=== PATIENT | female | born 1980 ===

== ENCOUNTER → 2022-03-12 | Outpatient (CLI) | payer SELFPAY | END | disposition home or self-care (01) | LOC: PREOP 05:31 | PROVIDERS: ATTEND Obstetrics & Gynecology | DX: Z01.818 Encounter for other preprocedural examination (principal) ==

== ENCOUNTER → 2022-06-18 | Outpatient (CLI) | payer SELFPAY | END | disposition home or self-care (01) | LOC: PREOP 05:28 | PROVIDERS: ATTEND Obstetrics & Gynecology | DX: Z01.818 Encounter for other preprocedural examination (principal); D25.9 Leiomyoma of uterus, unspecified ==

== ENCOUNTER 2022-06-25 08:21 | Day surgery (SDC) | payer OTHER ==
[~2022-06-25] VITALS: Ht 160 cm; Wt 68.1 kg
[2022-06-25] VITALS (11 sets, daily range): BP systolic 108–134; BP diastolic 67–86
[2022-06-25] MEDS ORDERED: LACTATED RINGERS 1,000 ML IV PRN (08:30)
[2022-06-25] MEDS ORDERED: metroNIDAZOLE 500MG/100ML IVPB 100 ML IV ONE (08:30)
[2022-06-25] MEDS ORDERED: ceFAZolin INJECTION 2,000 MG in NS (IVPB) 50 ML IV ONE (08:30)
[2022-06-25] MEDS: LACTATED RINGERS 1,000 ML IV PRN ×2 (09:00→11:15)
[2022-06-25 09:02] LABS: HEMATOCRIT 44 % (35-52); MEAN CORPUSCULAR HEMOGLOBIN 31 pg (25-34); MEAN CORPUSCULAR HGB CONC 35 g/dL (32-36); MEAN CORPUSCULAR VOLUME 90 fL (80-99); MEAN PLATELET VOLUME 9.7 fL (9.0-12.2); PLATELET COUNT 351 10^3/uL (130-400); WHITE BLOOD COUNT 6.8 10^3/uL (4.3-11.0)
--- NOTE | 2022-06-25 10:31 | Progress Note-Pre Operative ---
Pre-Operative Progress Note Date of Available H&P: Jun 25, 2022 Date H&P Reviewed: Jun 25, 2022 Time H&P Reviewed: 10:25 History & Physical: H&P Reviewed, Patient Examed, No changes noted Pre-Operative Diagnosis: AUB, Menorrhagia, Fibroid uterus CT VICENTE DO Jun 25, 2022 10:31
--- NOTE | 2022-06-25 10:35 | Discharge Inst-Women's Service ---
Discharge Inst-Women's Serv Depart Medication/Instructions New, Converted or Re-Newed RX: Transmitted to Pharmacy Problems Reviewed?: Yes Consults/Follow Up Additional Follow Up: Yes Activity Activity: Activity as Tolerated Driving Instructions: No Driving for 1 Week NO SMOKING: NO SMOKING Nothing Inside Vagina: No Douching, No [place], No Tampons Diet Discharge Diet: No Restrictions Symptoms to Report to : Bleeding Excessive, Pain Increased, Fever Over 101 Degrees F, Vaginal Bleeding Increase, Questions/Concerns For Any Problems or Questions: Contact Your Physician Skin/Wound Care Infection Signs and Symptoms: Increased Redness, Foul Odor of Wound, Increased Drainage, Skin Itchy or Has a Rash, Increased Swelling, Temperature Above 101 F Operative Area Clean and Dry: Keep Incision Clean/Dry Stitches/[place]/Dermabond: Dermabond, Care of Stitches Bathing Instructions: CT Rodrigues DO Jun 25, 2022 10:35
[2022-06-25] MEDS ORDERED: DOCU100C37 PO (10:36)
[2022-06-25] MEDS ORDERED: HYDR-34 PO (10:36)
[2022-06-25] MEDS ORDERED: IBUP-844 PO (10:36)
[2022-06-25] MEDS ORDERED: SIME80TA16 PO (10:36)
[2022-06-25] MEDS ORDERED: BUPIVACAINE 0.25% 30 ML (SENSORCAINE) VIAL ONE (10:42)
[2022-06-25] MEDS ORDERED: ONDANSETRON 4 MG/2 ML (SDV) Z0FRAN IV PRN (10:45)
[2022-06-25] MEDS ORDERED: ANTACID SUSP 30 ML UDC (MYLANTA) PO PRN (10:45)
[2022-06-25] MEDS ORDERED: BENZOCAINE LOZENGES 1 EACH LOZENGE MM PRN (10:45)
[2022-06-25] MEDS ORDERED: KETOROLAC 30 MG/ML VIAL IVP PRN (10:45)
[2022-06-25] MEDS ORDERED: KETOROLAC 30 MG/ML VIAL IVP ONE (10:45)
[2022-06-25] MEDS ORDERED: ZOLPIDEM 5 MG (AMBIEN) TAB PO PRN (10:45)
[2022-06-25] MEDS ORDERED: HYDROcodone/APAP 7.5 MG/325 MG (LORTAB, LORCET PLUS) TABLET PO PRN (10:45)
[2022-06-25] MEDS ORDERED: SIMETHICONE 80 MG (MYLICON) CHEW PO PRN (10:45)
[2022-06-25] MEDS ORDERED: DOCUSATE SODIUM 100 MG (COLACE) CAP PO PRN (10:45)
[2022-06-25] MEDS ORDERED: GLYCOPYRROLATE 0.2 MG/ML (ROBINUL) 2 ML VIAL ONE (11:06)
[2022-06-25] MEDS ORDERED: LIDOCAINE PF 2% 5 ML (XYLOCAINE) VIAL ONE (11:06)
[2022-06-25] MEDS ORDERED: ONDANSETRON 4 MG/2 ML (SDV) Z0FRAN ONE (11:06)
[2022-06-25] MEDS ORDERED: fentaNYL INJ 100 MCG/2 ML AMP ONE ×2 (11:06→12:28)
[2022-06-25] MEDS ORDERED: proPOfol 200 MG/20 ML (DIPRIVAN) VIAL IV ONE (11:06)
[2022-06-25] MEDS ORDERED: NEOSTIGMINE (BLOXIVERZ ) 1 MG/1ML 10 ML VIAL ONE (11:07)
[2022-06-25] MEDS ORDERED: MIDAZOLAM 2 MG/2 ML (VERSED) VIAL ONE (11:07)
[2022-06-25] MEDS ORDERED: ROCURONIUM 50 MG/5 ML (ZEMURON) VIAL IV ONE (11:07)
[2022-06-25] MEDS: LACTATED RINGERS 1,000 ML IV SCH ×3 (11:15→16:56)
[2022-06-25] MEDS ORDERED: BUPIVACAINE 0.25% 30 ML (SENSORCAINE) VIAL INJ ONE (12:10)
[2022-06-25] MEDS ORDERED: SEVOFLURANE (ULTANE) 15 ML INHAL SOLN ONE (12:32)
[2022-06-25] MEDS ORDERED: ONDANSETRON 4 MG/2 ML (SDV) Z0FRAN IVP PRN (13:00)
[2022-06-25] MEDS ORDERED: morphine INJ 10 MG/ML 1ML (SYR OR VIAL) IVP ONE (13:00)
[2022-06-25] MEDS ORDERED: HYDROmorphone 2 MG/ML VIAL (DILAUDID) IV ONE (13:00)
[2022-06-25] MEDS ORDERED: KETOROLAC 30 MG/ML VIAL ONE (13:10)
--- NOTE | 2022-06-25 13:27 | Anesthesia-General Post-Op ---
General Patient Condition Mental Status/LOC: Same as Preop Cardiovascular: Satisfactory Nausea/Vomiting: Absent Respiratory: Satisfactory Pain: Controlled Complications: Absent Post Op Complications Complications None Follow Up Care/Instructions Patient Instructions None needed. Anesthesia/Patient Condition Patient Condition Patient is doing well in PACU. She is having some pain but improved with medication, stable vital signs, no apparent adverse anesthesia problems. No complications reported per nursing. DEBBIE JOHNSTON DO Jun 25, 2022 13:27
--- NOTE | 2022-06-25 23:33 | OPERATIVE REPORT ---
DATE OF SERVICE: 06/25/2022 PREOPERATIVE DIAGNOSES: 1. A 42-year-old female with fibroid uterus. 2. Abnormal uterine bleeding. 3. Dysmenorrhea. 4. Pelvic pressure. POSTOPERATIVE DIAGNOSES: 1. A 42-year-old female with fibroid uterus. 2. Abnormal uterine bleeding. 3. Dysmenorrhea. 4. Pelvic pressure. PROCEDURES: Robotic-assisted total laparoscopic hysterectomy, bilateral salpingectomy with total specimen weight greater than 250 grams. SURGEON: Colin Vicente DO TRAINING AND DEVELOPMENT HEAD: Nicole Calderon DNP, who was necessary for manipulation and retraction throughout the procedure. ANESTHESIA: General endotracheal. ESTIMATED BLOOD LOSS: Minimal. URINE OUTPUT: 300 mL clear at the end of the procedure. FLUIDS: 1600 mL lactated Ringer's solution. FINDINGS: A bulky and hyperemic appearing uterus that is enlarged. Grossly normal-appearing bilateral ovaries and fallopian tubes, grossly normal-appearing external female genitalia. SPECIMEN SENT: Uterus, bilateral fallopian tubes. INDICATIONS FOR PROCEDURE: This is a 42-year-old female who had sought care in my office earlier last year. We discussed proceeding with hysterectomy due to her symptoms that she was having. However, she wanted to put this off until the New Year. Around the end of the year, we reconvened and spoke about definitive measures for this and both agreed that a hysterectomy would be the best choice for her. Risks of the procedure were discussed with the patient in detail including risk of bleeding, infection, damage to surrounding structures including but not limited to bowel, bladder, ureter or kidney, possible need for reoperation, postoperative complications that may occur, recovery timeframe, risk from anesthesia and even . After everything was discussed with the patient in detail, consent was obtained. The patient was taken to the operating room. DESCRIPTION OF PROCEDURE: Once in the operating room, general anesthesia was administered and found to be adequate, placed in dorsal lithotomy position, prepped and draped in usual sterile fashion. A timeout was performed. Anesthesia was tested and then placed a Hodge catheter using sterile technique. A weighted speculum was inserted into the patient's vagina, right angle retractor was used to visualize the cervix, which an 0-Vicryl suture was then placed in the anterior lip of the cervix and used my retraction point. I then gently sounded uterine cavity depth that sounded to be 8-9 cm. I placed an 8 cm TERI uterine manipulator tip with 4 cm colpotomy ring. The tip was placed into the uterus with the balloon, was deployed and the colpotomy ring was advanced around the vaginal fornix, after which all instruments were removed from the patient's vagina, performed change of gloves and turned my attention to the abdomen, where I introduced a Veress needle subcostally at the midclavicular line through the skin until intraperitoneal placement was confirmed using a saline drop test and an opening pressure of 5 mmHg was noted. I proceeded with CO2 gas to maximum pressure of 15 mmHg, at which point I made an infraumbilical incision. This is an 8 mm incision, I made with a knife and directed blunt laparoscopic da Sarah camera trocar through the incision to ensure proper placement was confirmed with the da Sarah laparoscope. There was no evidence of damage from the entry site. A brief scan of the upper abdominal anatomy appears to be grossly normal and the Veress needle was removed under direct visualization laparoscope. I then had the patient was placed in steep Trendelenburg, where I am able to visualize all my pelvic anatomy as defined in the findings above. I placed 2 lateral trocars. These were both 8 mm trocars approximately 8 cm lateral to my infraumbilical trocar. Both these trocars were placed under direct visualization laparoscope. Once these were both in place, bringing the da Sarah robot docked in appropriate fashion, placing the da Sarah vessel sealer in the left hand and monopolar roxana in the right hand performed the following dissection bilaterally. Starting at the uteroovarian ligament, I sealed and transected using the vessel sealer. I then created a window in the mesosalpinx, stayed just laterally down the mesosalpinx, amputating the fallopian tube from its surrounding blood supply. I then grasped the round ligament, which I sealed and transected using the vessel sealer. I then grasped the entire broad ligament, which I sealed and transected using vessel sealer down to the level of the lower uterine segment, at which point I the anterior and posterior leaf of the broad ligament, anterior leaf was taken down to the anterior vaginal fornix and the posterior leaflet was taken down to the posterior vaginal fornix. This allowed me to skeletonize the uterine vessels laterally, which I sealed and transected using the da Sarah vessel sealer. I then created a colpotomy at 12 o'clock position using monopolar roxana taking circumferentially around the vaginal fornix amputating the cervix away from the vagina. The entire specimen was then removed through the vagina. I then closed the vaginal cuff using 2-0 V-Loc in a running fashion, after which there was no active bleeding noted from any of my dissection planes. I then undocked through the da Sarah robot and proceeded with the remainder of the case laparoscopically. I then copiously irrigated the pelvis with normal saline. Once again, there was no active bleeding from any of my dissection planes. I placed Surgiflo hemostatic agent over all my planes of dissection. As the patient was taken out of steep Trendelenburg, I removed the lateral trocars under direct visualization, laparoscope. The infraumbilical trocar was left in place to release the remainder of the insufflation and introduced 10 mL of 0.25% Marcaine in the peritoneal cavity for postoperative pain management. I then removed this trocar as well. The skin was reapproximated using 4-0 Monocryl interrupted subcuticular stitches. Dermabond was applied on incisions and Band-Aids were placed over the incisions as well. Hodge catheter was left in place. The patient tolerated the procedure well and was taken to recovery area in stable condition. Lap and sponge counts were correct at the end of the procedure. Instrument counts were correct as well. Two grams of Ancef and 500 mg of Flagyl were given preoperatively for infection prophylaxis. Job ID: [id number] DocumentID: [id number] Dictated Date: 06/25/2022 12:37:43 Account General Manager Date: 06/25/2022 23:31:00 Dictated By: COLIN VICENTE DO
[2022-06-26] MEDS ORDERED: IBUPROFEN 600 MG (MOTRIN) TAB PO SCH (12:00)
== END 2022-06-25 22:08 ==
LOC: SDC 08:21 → WS 13:45 → SDC 22:08
PROVIDERS: ATTEND Obstetrics & Gynecology
DX: N80.03 Adenomyosis of the uterus (principal); N83.8 Other noninflammatory disorders of ovary, fallopian tube and broad ligament; D25.9 Leiomyoma of uterus, unspecified; Z28.310 Unvaccinated for COVID-19
CPT/HCPCS: 36415; 84703; 85027; 86850; 86900; 86901; 87081